=== PATIENT | male | born 1945 | race Caucasian/White ===

== ENCOUNTER 2016-06-17 14:40 | Emergency (ER) | payer OTHER ==
[~2016-06-17] VITALS: Ht 172.7 cm; Wt 86.2 kg
[2016-06-17 15:47] LABS: MCH 30.9 PG (29.0-34.0); MCHC 34.4 G/DL (30.0-36.0); MCV 89.6 FL (86-99); MEAN PLAT.VOLUME 10.1 uM^3 (9.0-12.4); PLATELET COUNT 238 K/uL (156-360); RBC DIS.WIDTH-SD 41.7 % (39-53); RED BLOOD COUNT 5.02 M/uL (4.00-5.50); WHITE BLOOD COUNT 15.9 K/uL (4.1-10.2)
[2016-06-17 15:55] LABS: CHLORIDE 104 mEq/L (99-109); POTASSIUM 4.6 mEq/L (3.7-5.4); SODIUM 141 mEq/L (136-147)
[2016-06-17 15:56] LABS: GLUCOSE 162 mg/dL (70-99)
[2016-06-17 15:58] LABS: ANION GAP 14 MEQ/L (2-14)
[2016-06-17 16:00] LABS: GFR ESTIMATE (CALCULATED) > 59 mL/min/
[2016-06-17 16:01] LABS: UREA NITROGEN (BUN) 19 mg/dL (9-23)
[2016-06-17 17:43] LABS: ADD MIUA? YES; BILIRUBIN NEGATIVE; BLOOD TRACE; COLOR YELLOW ((YELLOW)); GLUCOSE (STRIP) NEGATIVE; KETONES 15; LEUKOCYTES NEGATIVE; NITRITE NEGATIVE; PROTEIN (STRIP) NEGATIVE; SPECIFIC GRAVITY 1.021 (1.000-1.030); UROBILINOGEN 0.2 MG/DL (0.2-1.0)
[2016-06-17 18:24] LABS: EPITHELIAL CELLS NONE SEEN; RED BLOOD CELLS RARE /HPF (0-5); WHITE BLOOD CELLS NONE SEEN /HPF (0-5)
[2016-06-17 18:25] LABS: BACTERIA RARE; CASTS NONE SEEN /LPF; CRYSTALS NONE SEEN; MUCUS NONE SEEN; UCUL ADDED? NO
[2016-06-17] MEDS ORDERED: PERCOCET 5/31 TABLET PO (18:31)
[2016-06-17] MEDS ORDERED: FLOMAX0.4 MG PO (18:31)
[2016-06-17] MEDS ORDERED: INDOCIN50 MG PO (18:31)
[2016-06-17 18:41] VITALS: BP 138/78
== END 2016-06-17 18:42 | disposition home or self-care (01) ==
LOC: EME 14:40
PROVIDERS: Emergency Medicine
DX: N20.0 Calculus of kidney (principal); I10 Essential (primary) hypertension; Z87.891 Personal history of nicotine dependence
CPT/HCPCS: 74176; 80048; 81003; 85027; 99281; 99285; J1170; J1885; J2405; J7030